=== PATIENT | female | born 1990 | race Caucasian/White ===

== ENCOUNTER 2018-05-01 13:59 | Emergency (ER) | payer BC ==
[2018-05-01 14:43] VITALS: BP 138/84
--- NOTE | 2018-05-01 14:58 | UC ---
Shoulder Pain HPI - HPI Summary HPI Summary: 27 yo female with the onset of right shoulder pain and decreased ROM that started acutely 2 days ago while doing pullups. Had some mild shoulder pain about a week ago She is right handed - History of Current Complaint Chief Complaint: UCUpperExtremity Stated Complaint: RIGHT ARM CONCERN Time Seen by Provider: 05/01/18 14:42 Hx Obtained From: Patient Hx Last Menstrual Period: 04/22/18 Onset/Duration: Sudden Onset Timing: Constant Severity Initially: Moderate Severity Currently: Moderate Location Of Pain: Is Discrete @ - see image Pain Intensity: 7 Pain Scale Used: 0-10 Numeric Character: Sharp, Aching Aggravating Factor(s): Movement Alleviating Factor(s): Rest Associated Signs And Symptoms: Positive: Negative Related History: Dominant Hand Right Torso: 1 - pain here - Allergies/Home Medications Allergies/Adverse Reactions: Allergies Allergy/AdvReac Type Severity Reaction Status Date / Time No Known Allergies Allergy Verified 05/01/18 14:43 Home Medications: Home Medications NK [No Home Medications Reported] 05/01/18 [History Confirmed 05/01/18] PMH/Surg Hx/FS Hx/Imm Hx Previously Healthy: Yes - Surgical History Surgical History: None - Family History Known Family History: Negative: Cardiac Disease, Hypertension, Diabetes - Social History Alcohol Use: Occasionally Substance Use Type: None Smoking Status (MU): Never Smoked Tobacco Review of Systems All Other Systems Reviewed And Are Negative: Yes Constitutional: Positive: Negative Skin: Positive: Negative Eyes: Positive: Negative ENT: Positive: Negative Respiratory: Positive: Negative Cardiovascular: Positive: Negative Gastrointestinal: Positive: Negative Genitourinary: Positive: Negative Musculoskeletal: Positive: Arthralgia - right shoulder Neurological: Positive: Negative Psychological: Positive: Negative Physical Exam Triage Information Reviewed: Yes Appearance: Well-Appearing, No Pain Distress, Well-Nourished Vital Signs: Initial Vital Signs Temp 98.7 F 05/01/18 14:40 Pulse 84 05/01/18 14:40 Resp 15 05/01/18 14:40 BP 138/84 05/01/18 14:40 Pulse Ox 100 05/01/18 14:40 Vital Signs Reviewed: Yes Eyes: Positive: Conjunctiva Clear ENT: Positive: Hearing grossly normal. Negative: Nasal congestion, Nasal drainage, Tonsillar swelling, Tonsillar exudate, Hoarse voice Neck: Positive: Supple, Nontender, No Lymphadenopathy Respiratory: Positive: Lungs clear, Normal breath sounds, No respiratory distress, No accessory muscle use Cardiovascular: Positive: RRR, No Murmur Musculoskeletal: Positive: ROM Limited @ - unable to abduct right shoulder >90 degrees, pain int rotation >ext rotation, Neurological: Positive: Alert Psychological Exam: Normal Skin Exam: Normal Shoulder Course/Dx - Course Course Of Treatment: I ordered an XR after preforming my history and exam. When the XR tech came to get her she refused the shoulder XR - Differential Dx/Diagnosis Provider Diagnosis: Right shoulder injury, Elevated BP without diagnosis of hypertension Discharge - Sign-Out/Discharge Documenting (check all that apply): Patient Departure All imaging exams completed and their final reports reviewed: No Studies - Discharge Plan Condition: Stable Disposition: HOME Patient Education Materials: Shoulder Sprain (ED) Referrals: Noemi Knott MD [Primary Care Provider] - 2 Weeks (recheck in 2-12 weeks, you BP was a little high here (pre hypertensive range)) Robe Berrios MD [Medical Doctor] - 1 Week Additional Instructions: activity as tolerated ice twice daily advil or aleve you may have a shoulder strain but there are many other potential causes for your pain and decreased range of motion I suggest you she and orthopedist or sports physiologist for further investigation of your symptoms - Billing Disposition and Condition Condition: STABLE Disposition: Home
== END 2018-05-01 15:16 | disposition home or self-care (01) ==
LOC: UCCORT 13:59
DX: S49.91XA Unspecified injury of right shoulder and upper arm, initial encounter (principal); R03.0 Elevated blood-pressure reading, without diagnosis of hypertension; X50.0XXA Overexertion from strenuous movement or load, initial encounter; Y93.B2 Activity, push-ups, pull-ups, sit-ups; Y92.9 Unspecified place or not applicable
CPT/HCPCS: 99201; G0463